=== PATIENT | male | born 1945 | race Caucasian/White ===

== ENCOUNTER 2025-03-24 14:44 | Inpatient (IN) ==
[2025-03-24] MEDS ORDERED: VANCOMYCIN CONSULT ACTIVE PRN (16:11)
[2025-03-24] MEDS: PLASMA-LYTE A 1,000 ML IV ONE (16:27)
[2025-03-24] MEDS: ACETAMINOPHEN 1,000 MG/100 ML VIAL IV STA (16:30)
[2025-03-24] MEDS: ONDANSETRON INJ 2 MG/ML 2 ML VIAL IV STA (16:30)
--- NOTE | 2025-03-24 16:34 | Emergency Department Note ---
Impression & Plan Sepsis, Anaplasmosis, Pancytopenia, Rash, Hypomagnesemia, Acute hypokalemia, Acute hyponatremia, Acute dehydration ED Provider Note NAME: SILVIA MORALES AGE: 79 SEX: M : 1945 ARRIVES VIA: Ambulance INFORMANT: Patient, EMS, ED PROVIDER(S): Wong Dias DO CHIEF COMPLAINT: fever HPI: This is an 79-year-old female with the PMHx of hyperlipidemia, hypertension, esophageal reflux and osteoarthritis/osteoporosis presenting to [facility] for further evaluation of rash and fever. Patient is accompanied by his who provide additional history. History is provided by the patient's as well as the patient. He reports for 3 days he has had a rash. He was at urgent care, previously. They prescribed him antivirals as they thought this could be possibly shingles. Patient states the rash improved but now is diffuse throughout his whole body. Patient reports increased confusion, weakness and fatigue. He does have a fever. Patient states he is has intermittent episodes of nausea with emesis. No cough or congestion. Denies chest pain or palpitations. No shortness of breath. They deny abdominal pain. No urinary complaints. No recent changes in bowel movements. Patient denies recent changes in medications or OTC supplements. Patient offers no other complaints, today. ADDITIONAL HISTORY OBTAINED: Per HPI Chronic Medical/Social Conditions Affecting Care: Per HPI PAST MEDICAL HISTORY: See Below PAST SURGICAL HISTORY: See Below FAMILY HISTORY: See Below SOCIAL HISTORY: See Below HOME MEDICATIONS: See Below ALLERGIES: See Below VITALS: See Below PHYSICAL EXAMINATION: GENERAL: Sitting up in bed, alert, ill appearing, well nourished, no distress, non-toxic EYE EXAM: normal conjunctiva. OROPHARYNX: no exudate, no erythema, lips, buccal mucosa, and tongue normal and mucous membranes are dry NECK: supple, no nuchal rigidity, no adenopathy, non-tender LUNGS: Clear to auscultation. Normal chest wall mechanics HEART: no murmurs, tachycardic rate, regular rhythm ABDOMEN: abdomen soft, non-tender, no masses, no rebound or guarding. BACK: Back is symmetrical on inspection and there is no deformity, no midline tenderness, no CVA tenderness. SKIN: diffuse macular rash on 4/4 extremities and thorax without palm or sole involvement. No bullae. No mucosal membrane involvement. UPPER EXTREMITIES: upper extremities are grossly normal. LOWER EXTREMITIES: No pitting edema. NEURO EXAM: Normal sensorium, GCS 15, normal speech, mildly inattentive, no confusion, no gross weakness of arms, no gross weakness of legs. MEDICAL DECISION MAKING: Differential diagnoses includes but not limited to febrile illness, sepsis, bacteremia, tickborne illness, viral URI, complicated UTI In summary, this is a 79 year old male who presented with fevers. Differential as above. Nursing notes and pertinent past medical records reviewed. Vital signs reviewed and the patient is Febrile, tachycardic and tachypneic. Patient is otherwise hemodynamically stable. Patient meets SIRS criteria based on above. History and presentation revealed fevers and rash amongst other symptoms in the setting of a tick bite approximately 2 weeks ago. Highly suspicious of possible tickborne illness. Given nausea and generalized abdominal pain, I am concerned for possible intra-abdominal pathology as a source of the patient's sepsis. Physical examination revealed as above. As a result of my initial evaluation, IV access was established and the patient was placed on CCRM. Therapeutics ordered include IVFR and broad spectrum antibiotics. Diagnostics interpreted by me include cardiac monitoring as listed below: -Cardiac Monitoring: An order was placed for continuous cardiac monitoring. The monitor shows a rate of 90-120s with regular rhythm. Patient completed laboratory studies and imaging. CXR independently interpreted by me reveals no evidence of focal consolidation to suggest pna. No large pneumothorax or pleural effusion. No obvious displaced rib fracture. Results independently interpreted by me are pancytopenia. Anemia is stable. Multiple electrolyte derangements noted including hyponatremia, hypokalemia and hypomagnesemia. P.o. replenishment of potassium ordered with potassium chloride. IV replenishment of magnesium ordered. Patient does have mild elevation in his bilirubin as well as AST. Patient noted to have an elevated procalcitonin. He has mild hyperglycemia which is likely contributing to hyponatremia but not the exact etiology. Patient appears hypovolemic. Will continue IV fluid resuscitation. Further workup for hyponatremia ordered with serum osm as well as urine osm and urine sodium. The patient was managed with IV fluid resuscitation and electrolyte replacement. Patient was also given broad-spectrum antibiotics. Given concerns for anaplasmosis, patient was started on doxycycline as well. CT abdomen/pelvis did not reveal an exact etiology of the patient's sepsis. Could have mild gastroenteritis based on bowel inflammation on CT. Ultimately, the decision was made to admit the patient for sepsis secondary to anaplasmosis with acute dehydration and electrolyte derangements. I discussed the case with the hospitalist service via telephone/Tiger[employer] and they are agreeable to admit the patient to their services. Based on the above, including the patient's age, coexisting illnesses, labs, imaging, and exam findings the decision to treat as an inpatient. I discussed the patient with the hospitalist team who recommended admission to their services. They received the medications, treatments, interventions indicated above and their condition remained guarded. I discussed my findings with the patient and their family and they understand and agree with the treatment plan. All patient / family questions were answered to their satisfaction. Consults/Care Managements Discussions: Per MDM ER treatment provided: See above Procedures:none Critical Care: None The chart was completed utilizing Via Speech voice recognition software. Grammatical errors, random word insertions, pronoun errors, and incomplete sentences are an occasional consequence of this system due to software limitations, ambient noise, and hardware issues. Any formal questions or concerns about the content, text, or information contained within the body of this dictation should be directly addressed to the physician for clarification. 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 Beliefs That Will Affect Care: None marital status: Current Living Situation: Spouse current occupational status: retired Feels Safe at Home: Yes Safety Concerns: Feels Safe At This Time Assistive Devices: Glasses and Hearing Aid - Bilateral Allergies Allergies Allergy/AdvReac Type Severity Reaction Status Date / Time No Known Allergies Allergy Verified 03/15/20 12:45 Home Meds Home Medications Medication Instructions Recorded Confirmed alendronate 70 mg tablet 70 mg PO SA 03/15/20 03/24/25 amlodipine 5 mg tablet 5 mg PO HS 03/15/20 03/24/25 atorvastatin 10 mg tablet 10 mg PO HS 03/15/20 03/24/25 hydrochlorothiazide 25 mg tablet 25 mg PO QAM 03/15/20 03/24/25 metoprolol tartrate 25 mg tablet 25 mg PO BID 03/15/20 03/24/25 omeprazole 20 mg capsule,delayed 20 mg PO BID 02/19/25 03/24/25 release Previous Rx's Medication Instructions Recorded cyclobenzaprine 5 mg tablet 5 mg PO BID #10 tabs 02/20/25 oxycodone 5 mg tablet 5 mg PO Q6H PRN pain #7 tabs 02/20/25 Results & Data (ED) Vital Signs Vital Signs - 24 hr 03/24/25 14:58 03/24/25 15:24 03/24/25 15:30 Temperature 39.6 C H Temperature Source Oral Pulse Rate 104 H 98 H Pulse Rate [Apical] 94 H Pulse Rate from SpO2 Sensor Respiratory Rate 17 26 H 22 Respiratory Effort / Characteristics Non-Labored Spontaneous Non-Labored Spontaneous Respiratory Depth Normal Normal Respiratory Pattern Regular Blood Pressure 153/90 H 135/75 Blood Pressure [Right Arm] 139/79 Blood Pressure Mean 111 95 Blood Pressure Mean [Right Arm] 99 Blood Pressure Position Semi-fowlers Pulse Oximetry 92 92 92 Oxygen Delivery Method Room Air Room Air Sepsis Recent Fever Within 48 Hours Yes Sepsis New/Unexplained Change in Mental Status N/A Sepsis Action Taken by Nursing Physician Notified 03/24/25 16:00 03/24/25 16:03 03/24/25 16:21 Temperature Temperature Source Pulse Rate 94 H 96 H 96 H Pulse Rate [Apical] Pulse Rate from SpO2 Sensor Respiratory Rate 24 25 H Respiratory Effort / Characteristics Respiratory Depth Respiratory Pattern Blood Pressure 144/80 H Blood Pressure [Right Arm] Blood Pressure Mean 101 Blood Pressure Mean [Right Arm] Blood Pressure Position Pulse Oximetry 93 92 Oxygen Delivery Method Sepsis Recent Fever Within 48 Hours Sepsis New/Unexplained Change in Mental Status Sepsis Action Taken by Nursing 03/24/25 16:23 03/24/25 16:23 03/24/25 16:30 Temperature Temperature Source Pulse Rate 96 H 94 H Pulse Rate [Apical] 96 H Pulse Rate from SpO2 Sensor Respiratory Rate 20 20 23 Respiratory Effort / Characteristics Non-Labored Spontaneous Respiratory Depth Normal Respiratory Pattern Regular Blood Pressure Blood Pressure [Right Arm] 144/80 H Blood Pressure Mean Blood Pressure Mean [Right Arm] 101 Blood Pressure Position Pulse Oximetry 95 95 95 Oxygen Delivery Method Room Air Room Air Sepsis Recent Fever Within 48 Hours Sepsis New/Unexplained Change in Mental Status Sepsis Action Taken by Nursing 03/24/25 16:42 03/24/25 16:45 03/24/25 17:15 Temperature Temperature Source Pulse Rate 98 H 97 H 97 H Pulse Rate [Apical] Pulse Rate from SpO2 Sensor 98 H Respiratory Rate 26 H 26 H 16 Respiratory Effort / Characteristics Respiratory Depth Respiratory Pattern Blood Pressure 143/80 H 127/62 Blood Pressure [Right Arm] Blood Pressure Mean 101 83 Blood Pressure Mean [Right Arm] Blood Pressure Position Pulse Oximetry 94 93 91 Oxygen Delivery Method Sepsis Recent Fever Within 48 Hours Sepsis New/Unexplained Change in Mental Status Sepsis Action Taken by Nursing 03/24/25 17:31 03/24/25 17:42 03/24/25 17:45 Temperature 37.9 C H Temperature Source Oral Pulse Rate 89 91 H Pulse Rate [Apical] Pulse Rate from SpO2 Sensor Respiratory Rate 22 28 H Respiratory Effort / Characteristics Respiratory Depth Respiratory Pattern Blood Pressure 116/63 126/66 Blood Pressure [Right Arm] Blood Pressure Mean 80 98 Blood Pressure Mean [Right Arm] Blood Pressure Position Pulse Oximetry 91 91 Oxygen Delivery Method Sepsis Recent Fever Within 48 Hours Sepsis New/Unexplained Change in Mental Status Sepsis Action Taken by Nursing 03/24/25 18:12 03/24/25 18:15 03/24/25 18:21 Temperature Temperature Source Pulse Rate 93 H 92 H 94 H Pulse Rate [Apical] Pulse Rate from SpO2 Sensor Respiratory Rate 25 H 25 H 21 Respiratory Effort / Characteristics Respiratory Depth Respiratory Pattern Blood Pressure 110/64 110/65 110/65 Blood Pressure [Right Arm] Blood Pressure Mean 79 80 80 Blood Pressure Mean [Right Arm] Blood Pressure Position Pulse Oximetry 91 91 Oxygen Delivery Method Sepsis Recent Fever Within 48 Hours Sepsis New/Unexplained Change in Mental Status Sepsis Action Taken by Nursing 03/24/25 18:30 Temperature Temperature Source Pulse Rate 88 Pulse Rate [Apical] Pulse Rate from SpO2 Sensor Respiratory Rate 20 Respiratory Effort / Characteristics Respiratory Depth Respiratory Pattern Blood Pressure 112/64 Blood Pressure [Right Arm] Blood Pressure Mean 80 Blood Pressure Mean [Right Arm] Blood Pressure Position Pulse Oximetry 90 Oxygen Delivery Method Sepsis Recent Fever Within 48 Hours Sepsis New/Unexplained Change in Mental Status Sepsis Action Taken by Nursing Laboratory Data 03/24/25 14:54 03/24/25 14:54 Lab Results 03/24/25 03/24/25 03/24/25 Range/Units 14:54 16:25 18:20 WBC 4.25 L (4.8-10.8) K/ul RBC 4.14 L (4.70-6.10) M/uL Hgb 13.0 L (14.0-18.0) g/dl Hct 36.0 L (42.0-52.0) % MCV 87.0 (80.0-100.0) fL MCH 31.4 (25.0-34.0) pg MCHC 36.1 H (32.0-36.0) g/dL RDW Std Deviation 37.3 (36.4-46.3) fL RDW Coeff of Ayesha 11.7 (11.5-14.5) % Plt Count 67 L (130-400) K/uL MPV 11.9 (9.4-12.4) fL Immature Gran % (Auto) 0.7 % Neut % (Auto) 87.3 % Lymph % (Auto) 8.5 % [place] % (Auto) 3.3 % Eos % (Auto) 0.0 % Baso % (Auto) 0.2 % Neut # (Auto) 3.71 (1.40-6.50) K/uL Lymph # (Auto) 0.36 L (1.20-3.40) K/uL [place] # (Auto) 0.14 (0.11-0.59) K/uL Eos # (Auto) 0.00 (0.00-0.50) K/uL Baso # (Auto) 0.01 (0.00-0.20) K/uL Immature Gran # (Auto) 0.03 (0.01-0.20) K/uL PT 11.3 (9.0-12.0) Seconds INR 1.1 (0.9-1.1) APTT 32 H (21-31) Seconds PTT Ratio 1.2 VBG pH 7.44 H (7.36-7.41) VBG pCO2 40 (38-50) mmHg VBG pO2 34 mmHg VBG HCO3 27 mmol/L VBG O2 Saturation < 60.0 % VBG Base Excess 2.8 mEq/L Sodium 127 L (136-145) mmol/L Potassium 3.4 L (3.5-5.1) mmol/L Chloride 91 L (98-107) mmol/L Carbon Dioxide 25 (21-32) mmol/L Anion Gap 11 (3-11) BUN 17 (6-23) mg/dl Creatinine 1.03 (0.6-1.4) mg/dl Est Cr Clr Drug Dosing Not Reportable eGFR 72.98 BUN/Creatinine Ratio 16.5 (10-20) Glucose 144 H (70-99(Fasting)) mg/dl Lactate 1.6 (0.4-2.0) mmol/L Calcium 7.8 L (8.6-10.3) mg/dl Magnesium 1.4 L (1.7-2.4) mg/dl Total Bilirubin 1.1 H (0.2-1.0) mg/dl Direct Bilirubin 0.1 (0-0.2) mg/dl AST 83 H (13-39) U/L ALT 43 (7-52) U/L Alkaline Phosphatase 70 (34-104) U/L Troponin I High Sens 17.0 (0-20) pg/ml Total Protein 6.3 (6.0-8.3) gm/dl Albumin 3.3 L (3.4-5.0) gm/dl Procalcitonin 0.91 H (0-0.5) ng/ml Urine Color Yellow Urine Appearance Clear (Clear) Urine pH 8.0 H (4.5-7.5) Ur Specific Hubert 1.019 (1.000-1.030) Urine Protein 3+ H (Negative) Urine Glucose (UA) Negative (Negative) Urine Ketones 1+ H (Negative) Urine Blood 2+ H (Negative) Urine Nitrite Negative (Negative) Urine Bilirubin Negative (Negative) Urine Urobilinogen Positive H (Negative) Ur Leukocyte Esterase Negative (Negative) Urine WBC (Auto) 0-5 (0-5) /hpf Urine RBC (Auto) 6-10 H (0-2) /hpf U Hyaline Cast (Auto) 3-5 H (0-2) /lpf U Epithel Cells (Auto) 0-2 (0-2) /hpf Urine Bacteria (Auto) None Seen (None Seen) Urine Osmolality 569 (500-800) mOsm/kg Ur Random Sodium 73 mmol/L Urine Comment Nasal Screen MRSA (PCR) Negative (Negative) Adenovirus (PCR) Not Detected (NotDetected) Anaplasma Smear See Comment A Babesia Smear See Comment B. pertussis DNA (PCR) Not Detected (NotDetected) B.parapertussis DNA PCR Not Detected (NotDetected) Lyme Disease Screen Positive H (Negative) Lyme Tier 2 IgG Confirm Positive H (Negative) Lyme Tier 2 IgM Confirm Negative (Negative) C. pneumoniae DNA (PCR) Not Detected (NotDetected) Coronavirus OC43 (PCR) Not Detected (NotDetected) Coronavirus HKU1 (PCR) Not Detected (NotDetected) Coronavirus 229E (PCR) Not Detected (NotDetected) SARS-CoV-2 (PCR) Not Detected (NotDetected) Coronavirus NL63 (PCR) Not Detected (NotDetected) Human Metapneumovir PCR Not Detected (NotDetected) Influenza Type A (PCR) Not Detected (NotDetected) Influenza Type B (PCR) Not Detected (NotDetected) M. pneumoniae (PCR) Not Detected (NotDetected) Parainfluenza 1 (PCR) Not Detected (NotDetected) Parainfluenza 2 (PCR) Not Detected (NotDetected) Parainfluenza 3 (PCR) Not Detected (NotDetected) Parainfluenza 4 (PCR) Not Detected (NotDetected) RSV (PCR) Not Detected (NotDetected) Entero/Rhino (PCR) Not Detected (NotDetected) Administered Medications Atorvastatin Calcium (Atorvastatin 10 Mg Tab) 10 mg PO KAITLYNN Stop: 04/23/25 21:38 Last Admin: 03/24/25 22:04 Dose: 10 mg Documented By: PHANI Metoprolol Tartrate (Metoprolol Tartrate 25 Mg Tab) 25 mg PO BID KAITLYNN Stop: 04/23/25 21:38 Last Admin: 03/24/25 22:04 Dose: 25 mg Documented By: PHANI Discontinued Medications Cetirizine HCl (Cetirizine Hcl 10 Mg Tablet) 10 mg PO NOW ONE Stop: 03/24/25 17:19 Last Admin: 03/24/25 17:37 Dose: 10 mg Documented By: james Vancomycin HCl 1,500 mg/ (Sodium Chloride) 500 mls @ 200 mls/hr IV NOW STA Stop: 03/24/25 18:40 Last Infusion: 03/24/25 21:00 Dose: Infused Documented By: james Admin: 03/24/25 17:37 Dose: 200 mls/hr Documented By: james Cefepime HCl (Maxipime 2000mg) 2,000 mg in 20 mls @ 5 mls/min IV NOW STA; Protocol Stop: 03/24/25 16:14 Last Admin: 03/24/25 17:37 Dose: 5 mls/min Documented By: james Parenteral Electrolytes (Plasma-Lyte A Ph 7.4) 1,000 mls @ 999 mls/hr IV .Q1H1M ONE Stop: 03/24/25 17:11 Last Infusion: 03/24/25 19:16 Dose: Infused Documented By: james Admin: 03/24/25 16:27 Dose: 999 mls/hr Documented By: JIM Acetaminophen (Ofirmev) 1,000 mg in 100 mls @ 400 mls/hr IV NOW STA Stop: 03/24/25 16:29 Last Infusion: 03/24/25 16:50 Dose: Infused Documented By: james Admin: 03/24/25 16:30 Dose: 400 mls/hr Documented By: JIM Magnesium Sulfate/Dextrose (Magnesium Sulfate / D5w) 1 gm in 100 mls @ 100 mls/hr IV Q1H KAITLYNN Stop: 03/24/25 17:50 Last Infusion: 03/24/25 20:16 Dose: Infused Documented By: james Admin: 03/24/25 19:16 Dose: 100 mls/hr Documented By: james Doxycycline Hyclate 100 mg/ (Dextrose) 100 mls @ 50 mls/hr IV NOW STA Stop: 03/24/25 19:33 Last Admin: 03/24/25 22:03 Dose: 50 mls/hr Documented By: PHANI Sodium Chloride (Nss) 1,000 mls @ 999 mls/hr IV .Q1H1M ONE Stop: 03/24/25 19:52 Last Infusion: 03/24/25 20:19 Dose: Infused Documented By: james Admin: 03/24/25 19:19 Dose: 999 mls/hr Documented By: james Magnesium Sulfate/Dextrose (Magnesium Sulfate / D5w) 1 gm in 100 mls @ 50 mls/hr IV NOW STA Stop: 03/25/25 00:52 Last Admin: 03/24/25 23:00 Dose: 50 mls/hr Documented By: PHANI Ioversol (Optiray 320 100ml) 90 ml IV ONCE ONE Stop: 03/24/25 17:05 Last Admin: 03/24/25 17:05 Dose: 90 ml Documented By: LALIT Ondansetron HCl (Ondansetron Inj 2 Mg/Ml 2 Ml Vial) 4 mg IV NOW STA Stop: 03/24/25 16:15 Last Admin: 03/24/25 16:30 Dose: 4 mg Documented By: JIM Potassium Chloride (Potassium Chloride Crtab 20 Meq Tabcr) 40 meq PO NOW STA Stop: 03/24/25 16:53 Last Admin: 03/24/25 17:37 Dose: 40 meq Documented By: james Potassium Chloride (Potassium Chloride Crtab 20 Meq Tabcr) 40 meq PO NOW STA Stop: 03/24/25 22:53 Last Admin: 03/24/25 23:01 Dose: 40 meq Documented By: PHANI Imaging Data Radiologist's Impression: Chest X-Ray 03/24/25 16:11 Chest radiograph, one view History: Sepsis Comparison: None Findings: Single AP view of the chest performed. No focal consolidation or pleural effusion. No pneumothorax. The cardiomediastinal silhouette is within normal limits. There is new prominence and indistinct appearance of the hilar pulmonary vascularity. No evidence for lymphadenopathy. No visualized bony or soft tissue abnormality. Impression: Findings of pulmonary venous hypertension and possible early pulmonary edema. No focal pneumonia. Electronically signed by Jerson Mckeon 03-24-2025 6:56 PM Abdomen/Pelvis CT 03/24/25 16:43 CT ABDOMEN and PELVIS with INTRAVENOUS CONTRAST HISTORY: Abdominal pain TECHNIQUE: CT abdomen and pelvis with contrast. IV CONTRAST: 100 mL of OMNIPAQUE 300 ENTERIC CONTRAST: Not Given COMPARISON: None FINDINGS: LOWER CHEST: Mild cardiac enlargement. LIVER: No focal lesion identified. Hepatic steatosis. GALLBLADDER/BILIARY: Unremarkable gallbladder. No abnormal biliary dilatation. SPLEEN: Unremarkable. PANCREAS: Unremarkable. ADRENALS: Unremarkable. KIDNEYS: Cortical and parapelvic cysts. There is an intermediate density exophytic lesion arising from the lower pole of the right kidney anteriorly measuring 6 mm (series 2, and 37). No stones or hydronephrosis identified. PERITONEUM/RETROPERITONEUM. No lymphadenopathy by size criteria. No aortic aneurysm. GASTROINTESTINAL: No obstruction. Mild inflammatory changes of the stomach and the loops of small bowel demonstrate wall thickening. Anal wall thickening. Colonic diverticulosis without evidence of diverticulitis. REPRODUCTIVE: Prostamegaly. Enlarged prostate appears to impinge upon the urinary bladder outlet URINARY BLADDER inflammatory changes wall thickening. ABDOMINAL WALL: Small fat-containing umbilical hernia. BONES: No acute findings. IMPRESSION: Findings suggesting mild gastroenteritis. Inflammatory changes of the urinary bladder may be due to cystitis. Prostamegaly with urinary bladder outlet obstruction also present. Intermittent density exophytic lesion arising from the lower pole of the right kidney may represent a proteinaceous versus a hemorrhagic cyst however consider further evaluation with renal ultrasound when clinically able to exclude complexity Electronically signed by Craig Bermeo 03-24-2025 7:07 PM Discharge Plan Visit Data Chief Complaint: Illness Stated Complaint: ILLNESS, RASH ED Provider: Wong Dias Discharge Problem: Sepsis, Anaplasmosis, Pancytopenia, Rash, Hypomagnesemia, Acute hypokalemia, Acute hyponatremia, Acute dehydration Patient Disposition: Admitted As Inpatient Condition: Serious Discharge Instructions Interventions: ED Discharge Assessment Last Done: 03/24/25 20:11
[2025-03-24 16:47] LABS: Alanine Aminotransferase 43 U/L (7-52); Albumin Level 3.3 gm/dl (3.4-5.0); Alkaline Phosphatase 70 U/L (34-104); Anion Gap 11 (3-11); Bilirubin,Total 1.1 mg/dl (0.2-1.0); Blood Urea Nitrogen 17 mg/dl (6-23); Calcium 7.8 mg/dl (8.6-10.3); Carbon Dioxide 25 mmol/L (21-32); Chloride 91 mmol/L (98-107); Glucose 144 mg/dl (70-99(Fasting)); Magnesium 1.4 mg/dl (1.7-2.4); Potassium 3.4 mmol/L (3.5-5.1); Sodium 127 mmol/L (136-145); Total Protein 6.3 gm/dl (6.0-8.3)
[2025-03-24 16:48] LABS: Base Excess VBG 2.8 mEq/L; HCO3 VBG 27 mmol/L; Oxygen Saturation VBG < 60.0 %; PCO2 VBG 40 mmHg (38-50); PO2 VBG 34 mmHg; pH VBG 7.44 (7.36-7.41)
[2025-03-24 16:59] LABS: Appearance Urine Clear (Clear); Bacteria Urine Automated None Seen (None Seen); Epithelial Cell Urine Auto 0-2 /hpf (0-2); Glucose Urine UA Negative (Negative); WBC Urine Automated 0-5 /hpf (0-5)
[2025-03-24 17:04] LABS: INR 1.1 (0.9-1.1); Partial Thromboplastin Time 32 Seconds (21-31); Prothrombin Time 11.3 Seconds (9.0-12.0)
[2025-03-24] MEDS: OPTIRAY 320 100ml IV ONE (17:05)
[2025-03-24] MEDS: POTASSIUM CHLORIDE CRTAB 20 MEQ TABCR PO STA ×2 (17:37→23:01)
[2025-03-24] MEDS: CEFEPIME 2000MG 2,000 MG/20 ML SYR IV STA (17:37)
[2025-03-24] MEDS: VANCOMYCIN HCL 1,500 MG in SODIUM CHLORIDE 0.9% 500 ML IV STA (17:37)
[2025-03-24] MEDS: CETIRIZINE HCL 10 MG TABLET PO ONE (17:37)
[2025-03-24 17:46] LABS: Chlamydia pneumoniae PCR Not Detected (NotDetected); Coronavirus 229E PCR Not Detected (NotDetected); Coronavirus CoV-2 (COVID19)PCR Not Detected (NotDetected); Coronavirus HKU1 PCR Not Detected (NotDetected); Coronavirus NL63 PCR Not Detected (NotDetected); Coronavirus OC43PCR Not Detected (NotDetected); Human Metapneumovirus PCR Not Detected (NotDetected); Parainfluenza Virus 1 PCR Not Detected (NotDetected); Parainfluenza Virus 2 PCR Not Detected (NotDetected); Parainfluenza Virus 3 PCR Not Detected (NotDetected); Parainfluenza Virus 4 PCR Not Detected (NotDetected); Respiratory Syncytial VirusPCR Not Detected (NotDetected); Rhinovirus/Enterovirus PCR Not Detected (NotDetected)
[2025-03-24 17:50] LABS: Hematocrit (blood only) 36.0 % (42.0-52.0); Hemoglobin 13.0 g/dl (14.0-18.0); Mean Corpuscular Hemoglobin 31.4 pg (25.0-34.0); Mean Corpuscular Volume 87.0 fL (80.0-100.0); Platelet Count 67 K/uL (130-400); RDW Standard Deviation 37.3 fL (36.4-46.3); Red Blood Count 4.14 M/uL (4.70-6.10); White Blood Count 4.25 K/ul (4.8-10.8)
[2025-03-24 17:51] LABS: Immature Granulocytes # (auto) 0.03 K/uL (0.01-0.20); Immature Granulocytes % (auto) 0.7 %
--- NOTE | 2025-03-24 18:17 | History & Physical Report ---
Date of Service March 24, 2025 Assessment & Plan (1) Anaplasmosis: (2) Hypertension: (3) Hyperlipidemia: Plan This is an 79 y/o male with HTN, dyslipidemia, GERD, and compression fractures who presents to the ED today with fever and a rash. Work-up in the ED revealed mild pancytopenia, multiple electrolyte abnormalities including sodium low at 127, potassium low at 3.4, magnesium low at 1.4. Procalcitonin was elevated at 0.91. Anaplasma smear positive with intracytoplasmic neutrophilic inclusions noted. Confirmatory testing pending. Pt referred for admission for further management. 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 #Multiple electrolyte abnormalities - hyponatremia, hypokalemia, hypomagnesemia - Admit to PCU - Will give additional 1L IVF bolus - 30 ml/kg calculated around 2200 ml - Continue electrolyte repletion - will give additional 40 mEq of KCl - Labs in the AM - Doxycyline 100 mg IV BID, continue cefepime for now pending cultures - PRN acetaminophen for fevers - CT Abd/Pel pending #Hypertension - BP currently in the 110s systolic so will hold amlodipine - Hold HCTZ in view of hyponatremia - Continue beta yolette - Re-evaluate in the AM #Dyslipidemia - Chronic, stable - continue statin #GERD - Chronic, stable - continue PPI #Recent compression fracture - PRN pain control - PT/OT evaluations Pt seen and evaluated with attending physician, Dr. Benedict. Plan of care discussed and as outlined above. Code status: DNR/DNI DVT prophylaxis: SCDs due to thrombocytopenia Nisha Begum PA-C History of Present Illness Chief Complaint: fever, rash Primary Care Provider: Marlene Camargo MD This is an 79 y/o male with HTN, dyslipidemia, GERD, and compression fractures who presents to the ED today with fever and a rash. Pt was seen at urgent care on 03/22 for fever, nausea, fatigue x 3 days then developed a rash that day. Noted at that visit that he found a tick about two weeks ago on his right abdomen, which he removed. Unsure how long it was attached. Rash at that time when he was seen in urgent care was isolated to left chest and axilla so provider was concerned about shingles and started valacyclovir. Lyme and anaplasmosis serologies were drawn at that visit but pending. Since that visit, he has continued to feel worse with progression of the rash and worsening fatigue and weakness. Ongoing fevers. Pt's has noticed that he seems a little confused over the last two days, slower to respond when she asked him questions. Appetite has been poor for the last several days with limited oral intake. Urinating without issues. Denies headache, neck pain, cough, congestion, vomiting, diarrhea. Still has some back pain related to compression fractures but overall improving. Allergies Allergy/AdvReac Type Severity Reaction Status Date / Time No Known Allergies Allergy Verified 03/15/20 12:45 Home Medications Medication Instructions Recorded Confirmed Type alendronate 70 mg tablet 70 mg PO SA 03/15/20 03/24/25 History amlodipine 5 mg tablet 5 mg PO HS 03/15/20 03/24/25 History atorvastatin 10 mg tablet 10 mg PO HS 03/15/20 03/24/25 History hydrochlorothiazide 25 mg tablet 25 mg PO QAM 03/15/20 03/24/25 History metoprolol tartrate 25 mg tablet 25 mg PO BID 03/15/20 03/24/25 History omeprazole 20 mg capsule,delayed 20 mg PO BID 02/19/25 03/24/25 History release cyclobenzaprine 5 mg tablet 5 mg PO BID #10 tabs 02/20/25 03/24/25 Rx oxycodone 5 mg tablet 5 mg PO Q6H PRN pain #7 tabs 02/20/25 03/24/25 Rx Past Med/Surg History Problem List (Updated 03/25/25 @ 03:49 by Wong Dias DO) Acute dehydration (Acute) Acute hyponatremia (Acute) Acute hypokalemia (Acute) Hypomagnesemia (Acute) Rash (Acute) Pancytopenia (Acute) Sepsis (Acute) Anaplasmosis (Acute) Medical History Compression fracture of body of thoracic vertebra Hyperlipidemia Hypertension Surgical History History of appendectomy Social History Smoking Status: Never smoker Hx Alcohol Use: No Hx Substance Use: No Preferred Language: Sami Communication Ability: Effective 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 Results & Data Results & Data Vital Signs (Past 12 Hours) Vital Signs Temp Pulse Pulse Resp BP BP Pulse Ox 03/24/25 17:45 91 H 28 H 126/66 91 03/24/25 17:42 37.9 C H 03/24/25 17:31 89 22 116/63 91 03/24/25 17:15 97 H 16 127/62 91 03/24/25 16:45 97 H 26 H 143/80 H 93 03/24/25 16:42 98 H 26 H 94 03/24/25 16:30 94 H 23 95 03/24/25 16:23 96 H 20 144/80 H 95 03/24/25 16:23 96 H 20 95 03/24/25 16:21 96 H 25 H 92 03/24/25 16:03 96 H 03/24/25 16:00 94 H 24 144/80 H 93 03/24/25 15:30 98 H 22 135/75 92 03/24/25 15:24 94 H 26 H 139/79 92 03/24/25 14:58 39.6 C H 104 H 17 153/90 H 92 O2 Del Method 03/24/25 17:45 03/24/25 17:42 03/24/25 17:31 03/24/25 17:15 03/24/25 16:45 03/24/25 16:42 03/24/25 16:30 03/24/25 16:23 Room Air 03/24/25 16:23 Room Air 03/24/25 16:21 03/24/25 16:03 03/24/25 16:00 03/24/25 15:30 03/24/25 15:24 Room Air 03/24/25 14:58 Room Air Laboratory Results Lab Results 03/24/25 03/24/25 03/24/25 Range/Units 14:54 16:25 Unknown WBC 4.25 L (4.8-10.8) K/ul RBC 4.14 L (4.70-6.10) M/uL Hgb 13.0 L (14.0-18.0) g/dl Hct 36.0 L (42.0-52.0) % MCV 87.0 (80.0-100.0) fL MCH 31.4 (25.0-34.0) pg MCHC 36.1 H (32.0-36.0) g/dL RDW Std Deviation 37.3 (36.4-46.3) fL RDW Coeff of Ayesha 11.7 (11.5-14.5) % Plt Count 67 L (130-400) K/uL MPV 11.9 (9.4-12.4) fL Immature Gran % (Auto) 0.7 % Neut % (Auto) 87.3 % Lymph % (Auto) 8.5 % Thayer % (Auto) 3.3 % Eos % (Auto) 0.0 % Baso % (Auto) 0.2 % Neut # (Auto) 3.71 (1.40-6.50) K/uL Lymph # (Auto) 0.36 L (1.20-3.40) K/uL Thayer # (Auto) 0.14 (0.11-0.59) K/uL Eos # (Auto) 0.00 (0.00-0.50) K/uL Baso # (Auto) 0.01 (0.00-0.20) K/uL Immature Gran # (Auto) 0.03 (0.01-0.20) K/uL PT 11.3 (9.0-12.0) Seconds INR 1.1 (0.9-1.1) APTT 32 H (21-31) Seconds PTT Ratio 1.2 VBG pH 7.44 H (7.36-7.41) VBG pCO2 40 (38-50) mmHg VBG pO2 34 mmHg VBG HCO3 27 mmol/L VBG O2 Saturation < 60.0 % VBG Base Excess 2.8 mEq/L Sodium 127 L (136-145) mmol/L Potassium 3.4 L (3.5-5.1) mmol/L Chloride 91 L (98-107) mmol/L Carbon Dioxide 25 (21-32) mmol/L Anion Gap 11 (3-11) BUN 17 (6-23) mg/dl Creatinine 1.03 (0.6-1.4) mg/dl Est Cr Clr Drug Dosing Not Reportable eGFR 72.98 BUN/Creatinine Ratio 16.5 (10-20) Glucose 144 H (70-99(Fasting)) mg/dl Osmolality 265 L (280-300) mOsm/kg Lactate 1.6 (0.4-2.0) mmol/L Calcium 7.8 L (8.6-10.3) mg/dl Magnesium 1.4 L (1.7-2.4) mg/dl Total Bilirubin 1.1 H (0.2-1.0) mg/dl Direct Bilirubin 0.1 (0-0.2) mg/dl AST 83 H (13-39) U/L ALT 43 (7-52) U/L Alkaline Phosphatase 70 (34-104) U/L Troponin I High Sens 17.0 (0-20) pg/ml Total Protein 6.3 (6.0-8.3) gm/dl Albumin 3.3 L (3.4-5.0) gm/dl Procalcitonin 0.91 H (0-0.5) ng/ml Urine Color Yellow Urine Appearance Clear (Clear) Urine pH 8.0 H (4.5-7.5) Ur Specific Gleason 1.019 (1.000-1.030) Urine Protein 3+ H (Negative) Urine Glucose (UA) Negative (Negative) Urine Ketones 1+ H (Negative) Urine Blood 2+ H (Negative) Urine Nitrite Negative (Negative) Urine Bilirubin Negative (Negative) Urine Urobilinogen Positive H (Negative) Ur Leukocyte Esterase Negative (Negative) Urine WBC (Auto) 0-5 (0-5) /hpf Urine RBC (Auto) 6-10 H (0-2) /hpf U Hyaline Cast (Auto) 3-5 H (0-2) /lpf U Epithel Cells (Auto) 0-2 (0-2) /hpf Urine Bacteria (Auto) None Seen (None Seen) Urine Osmolality 569 (500-800) mOsm/kg Ur Random Sodium 73 mmol/L Urine Comment Adenovirus (PCR) Not Detected (NotDetected) Anaplasma Smear See Comment A Babesia Smear See Comment B. pertussis DNA (PCR) Not Detected (NotDetected) B.parapertussis DNA PCR Not Detected (NotDetected) C. pneumoniae DNA (PCR) Not Detected (NotDetected) Coronavirus OC43 (PCR) Not Detected (NotDetected) Coronavirus HKU1 (PCR) Not Detected (NotDetected) Coronavirus 229E (PCR) Not Detected (NotDetected) SARS-CoV-2 (PCR) Not Detected (NotDetected) Coronavirus NL63 (PCR) Not Detected (NotDetected) Human Metapneumovir PCR Not Detected (NotDetected) Influenza Type A (PCR) Not Detected (NotDetected) Influenza Type B (PCR) Not Detected (NotDetected) M. pneumoniae (PCR) Not Detected (NotDetected) Parainfluenza 1 (PCR) Not Detected (NotDetected) Parainfluenza 2 (PCR) Not Detected (NotDetected) Parainfluenza 3 (PCR) Not Detected (NotDetected) Parainfluenza 4 (PCR) Not Detected (NotDetected) RSV (PCR) Not Detected (NotDetected) Entero/Rhino (PCR) Not Detected (NotDetected) Medications Administered Vancomycin HCl 1,500 mg/ (Sodium Chloride) 500 mls @ 200 mls/hr IV NOW STA Stop: 03/24/25 18:40 Last Admin: 03/24/25 17:37 Dose: 200 mls/hr Documented By: james Discontinued Medications Cetirizine HCl (Cetirizine Hcl 10 Mg Tablet) 10 mg PO NOW ONE Stop: 03/24/25 17:19 Last Admin: 03/24/25 17:37 Dose: 10 mg Documented By: james Cefepime HCl (Maxipime 2000mg) 2,000 mg in 20 mls @ 5 mls/min IV NOW STA; Protocol Stop: 03/24/25 16:14 Last Admin: 03/24/25 17:37 Dose: 5 mls/min Documented By: james Parenteral Electrolytes (Plasma-Lyte A Ph 7.4) 1,000 mls @ 999 mls/hr IV .Q1H1M ONE Stop: 03/24/25 17:11 Last Admin: 03/24/25 16:27 Dose: 999 mls/hr Documented By: JIM Acetaminophen (Ofirmev) 1,000 mg in 100 mls @ 400 mls/hr IV NOW STA Stop: 03/24/25 16:29 Last Infusion: 03/24/25 16:50 Dose: Infused Documented By: james Admin: 03/24/25 16:30 Dose: 400 mls/hr Documented By: JIM Ioversol (Optiray 320 100ml) 90 ml IV ONCE ONE Stop: 03/24/25 17:05 Last Admin: 03/24/25 17:05 Dose: 90 ml Documented By: LALIT Ondansetron HCl (Ondansetron Inj 2 Mg/Ml 2 Ml Vial) 4 mg IV NOW STA Stop: 03/24/25 16:15 Last Admin: 03/24/25 16:30 Dose: 4 mg Documented By: JIM Potassium Chloride (Potassium Chloride Crtab 20 Meq Tabcr) 40 meq PO NOW STA Stop: 03/24/25 16:53 Last Admin: 03/24/25 17:37 Dose: 40 meq Documented By: james Supervising Physician Co-Signing Physician Notes I have seen and discussed the case with the collaborating advanced practitioner. I agree with the above H&P. I have reviewed and confirmed the patients medical history, the findings on physical examination, and the patients diagnosis and treatment plan with Shy LONGO and agree with the information documented. Evaluated patient at bedside. Reports tick bite maybe two weeks ago. Reports progressive fatigue over last few days, with onset of rash on Tuesday. Patient was treated for valacyclovir for presumptive shingles, and tested on Tuesday for tick borne. patient reports worsening fatigue with inability to stand from ground prompting presentation. Patient also notes rash progressed. Denies chest pain, neck pain, headache, sob, or other concerns outside of fevers, weakness, rash. GENERAL APPEARANCE: AxOx4, mildly ill appearing gentleman no acute distress. HEENT: NC, AT. MMM. EOMI, clear conjunctiva, oropharynx clear. NECK: Supple without lymphadenopathy. No stiffness or restricted ROM. HEART: Normal rate and regular rhythm, normal S1/S1, no m/r/g LUNGS: CTAB, moving air well. No crackles or wheezes are heard. ABDOMEN: Soft, nontender, nondistended with good bowel sounds heard. BACK: No CVAT, no obvious deformity. EXTREMITIES: Without cyanosis, clubbing or edema. NEUROLOGICAL: Grossly nonfocal. Alert and oriented, moving all 4 extremities. CN not formally tested but appear grossly intact. Skin: Warm, diffuse maculopapular rash of torso, back, legs, and upper extremitites, nontender, nonblanching, no vesicles/pustules noted ## Sepsis 2/2 tick borne illness reported tick bite confirmed 2 weeks earlier, lyme/anaplasmosis preliminary follow final serologies follow blood cultures continue cefepime and doxy monitor on tele admit PCU ensure sepsis protocol with fluid resuscitation hold antihypertensives for now follow up on ct abd/p #Pancytopenia likely secondary to above trend cbc #mild transaminits like secondary to above trend lfts rest of plan as above I spent a total of 25 minutes coordinating, documenting, and providing care for this patient excluding time spent in the performance of separately billed services. All of the aforementioned completed outside of collaborating with the assigned advanced practitioner for a full treatment plan. I have reviewed the advanced practitioner's documentation, and I agree with, and take responsibility for the plan of care
[2025-03-24 18:28] LABS: Lyme Screen Rflx Confirmation Positive (Negative)
[2025-03-24] MEDS ORDERED: POTASSIUM CHLORIDE CRTAB 20 MEQ TABCR PO STA (18:53)
--- NOTE | 2025-03-24 18:57 | XRay Report ---
Chest radiograph, one view History: Sepsis Comparison: None Findings: Single AP view of the chest performed. No focal consolidation or pleural effusion. No pneumothorax. The cardiomediastinal silhouette is within normal limits. There is new prominence and indistinct appearance of the hilar pulmonary vascularity. No evidence for lymphadenopathy. No visualized bony or soft tissue abnormality. Impression: Findings of pulmonary venous hypertension and possible early pulmonary edema. No focal pneumonia. Electronically signed by Jerson Mckeon 03-24-2025 6:56 PM
--- NOTE | 2025-03-24 19:08 | CT Scan Report ---
CT ABDOMEN and PELVIS with INTRAVENOUS CONTRAST HISTORY: Abdominal pain TECHNIQUE: CT abdomen and pelvis with contrast. IV CONTRAST: 100 mL of OMNIPAQUE 300 ENTERIC CONTRAST: Not Given COMPARISON: None FINDINGS: LOWER CHEST: Mild cardiac enlargement. LIVER: No focal lesion identified. Hepatic steatosis. GALLBLADDER/BILIARY: Unremarkable gallbladder. No abnormal biliary dilatation. SPLEEN: Unremarkable. PANCREAS: Unremarkable. ADRENALS: Unremarkable. KIDNEYS: Cortical and parapelvic cysts. There is an intermediate density exophytic lesion arising from the lower pole of the right kidney anteriorly measuring 6 mm (series 2, and 37). No stones or hydronephrosis identified. PERITONEUM/RETROPERITONEUM. No lymphadenopathy by size criteria. No aortic aneurysm. GASTROINTESTINAL: No obstruction. Mild inflammatory changes of the stomach and the loops of small bowel demonstrate wall thickening. Anal wall thickening. Colonic diverticulosis without evidence of diverticulitis. REPRODUCTIVE: Prostamegaly. Enlarged prostate appears to impinge upon the urinary bladder outlet URINARY BLADDER inflammatory changes wall thickening. ABDOMINAL WALL: Small fat-containing umbilical hernia. BONES: No acute findings. IMPRESSION: Findings suggesting mild gastroenteritis. Inflammatory changes of the urinary bladder may be due to cystitis. Prostamegaly with urinary bladder outlet obstruction also present. Intermittent density exophytic lesion arising from the lower pole of the right kidney may represent a proteinaceous versus a hemorrhagic cyst however consider further evaluation with renal ultrasound when clinically able to exclude complexity Electronically signed by Craig Bermeo 03-24-2025 7:07 PM
[2025-03-24] MEDS: MAGNESIUM SULFATE / D5W 1 GM/100 ML BAG IV SCH (19:16)
[2025-03-24] MEDS: SODIUM CHLORIDE 0.9% 1,000 ML IV ONE (19:19)
[2025-03-24 20:11] LABS: Lyme Ab IgG 2nd Tier Confirm Positive (Negative)
[2025-03-24 20:12] LABS: Lyme Ab IgM 2nd Tier Confirm Negative (Negative)
[2025-03-24] MEDS ORDERED: ONDANSETRON INJ 2 MG/ML 2 ML VIAL IV PRN (21:39)
[2025-03-24] MEDS: DOXYCYCLINE HYCLATE 100 MG in DEXTROSE 5% MINI-B 100 ML IV STA (22:03)
[2025-03-24] MEDS: METOPROLOL TARTRATE 25 MG TAB PO SCH (22:04)
[2025-03-24] MEDS: ATORVASTATIN 10 MG TAB PO SCH (22:04)
[2025-03-24] MEDS: MAGNESIUM SULFATE / D5W 1 GM/100 ML BAG IV STA (23:00)
[2025-03-25] MEDS: CEFEPIME 2000MG 2,000 MG/20 ML SYR IV SCH (02:30)
[2025-03-25] MEDS: ACETAMINOPHEN 500 MG TAB PO PRN (03:37)
[2025-03-25] MEDS: Patient's HEIGHT &/or WEIGHT Needed STA (03:38)
[2025-03-25] MEDS: DOXYCYCLINE HYCLATE 100 MG in DEXTROSE 5% MINI-B 100 ML IV SCH (05:48)
[2025-03-25 07:07] LABS: Alanine Aminotransferase 55.0 U/L (7-52); Albumin Globulin Ratio 1.1 (0.9-2); Albumin Level 2.9 gm/dl (3.4-5.0); Alkaline Phosphatase 63.0 U/L (34-104); Anion Gap 6.0 (3-11); Bilirubin,Total 0.9 mg/dl (0.2-1.0); Blood Urea Nitrogen 13.0 mg/dl (6-23); Calcium 7.3 mg/dl (8.6-10.3); Carbon Dioxide 23.0 mmol/L (21-32); Chloride 101.0 mmol/L (98-107); Creatinine Clr Calc Pharmacy 66.7 ml/min; Globulin 2.6 gm/dl (2.5-4.0); Glucose 107.0 mg/dl (70-99(Fasting)); Magnesium 2.1 mg/dl (1.7-2.4); Potassium 3.8 mmol/L (3.5-5.1); Sodium 130.0 mmol/L (136-145); Total Protein 5.5 gm/dl (6.0-8.3)
[2025-03-25 07:16] LABS: Hematocrit (blood only) 30.7 % (42.0-52.0); Hemoglobin 11.2 g/dl (14.0-18.0); Mean Corpuscular Hemoglobin 31.9 pg (25.0-34.0); Mean Corpuscular Volume 87.5 fL (80.0-100.0); Platelet Count 55 K/uL (130-400); RDW Standard Deviation 38.5 fL (36.4-46.3); Red Blood Count 3.51 M/uL (4.70-6.10); White Blood Count 5.24 K/ul (4.8-10.8)
[2025-03-25 07:24] LABS: Immature Granulocytes # (auto) 0.04 K/uL (0.01-0.20); Immature Granulocytes % (auto) 0.8 %
[2025-03-25 08:02] VITALS: RESP 18
[2025-03-25] MEDS: POT PHOSPHATE MONOBASIC W/ SOD TAB PO SCH (09:43)
--- NOTE | 2025-03-25 12:34 | Hospitalist Progress Note ---
Date of Service March 25, 2025 Assessment & Plan (1) Anaplasmosis: (2) Hypertension: (3) Hyperlipidemia: Plan Mr. Travis is an 79 y/o male with HTN, dyslipidemia, GERD, and compression fractures admitted for sepsis secondary to anaplasmosis. Patient reports subjective improvement. CT Abd pelvis reviewed noting gastroenteritis, inflammatory bladder changers, and an exophytic lesion on lower pole of right kidney, as well as prostatomegaly. Renal U/S ordered to eval the renal lesion. Otherwise no splenomegaly # Sepsis 2/2 tick borne illness, suspect Anaplasmosis reported tick bite confirmed 2 weeks earlier; lyme +, IgG; anaplasmosis smear + biofire negative follow final serologies follow blood cultures, NGTD continue cefepime and doxy monitor on tele patient appears adequately fluid resusicated #Pancytopenia likely secondary to above, anticipate rebound in 24-48 hours trend cbc #mild transaminitis like secondary to above, no GI concerns at this time trend lfts #Hypertension BP currently in the 110s systolic so will hold amlodipine Hold HCTZ in view of hyponatremia Continue beta yolette #Dyslipidemia - Chronic, stable - continue statin #GERD - Chronic, stable - continue PPI #Recent compression fracture - PRN pain control - PT/OT evaluations Code status: DNR/DNI DVT prophylaxis: SCDs due to thrombocytopenia Admission and Anticipated Discharge Date Admission Date: March 24, 2025 Subjective Reports some subjective improvement, including increase in appetite denies chest pain, sob, nausea, vomiting endorses weakness residual from days prior, but no worse than before Physical Exam Constitutional: WD/WN, vitals as above Respiratory: normal respiratory effort, lungs clear to auscultation Cardiovascular: RRR, no murmur, no edema Gastrointestinal (Abdomen): normal bowel sounds, soft, nontender, no hepatosplenomegaly Skin: diffuse maculopapular rash much less erythematous than day prior with fading borders Results & Data Results & Data Vital Signs (Past 12 Hours) Vital Signs Temp Pulse Resp BP Pulse Ox Pulse Ox Pulse Ox 03/25/25 11:53 95 98 03/25/25 08:00 36.7 C 69 18 108/65 93 03/25/25 03:32 38.1 C H 85 17 117/65 92 O2 Del Method O2 Flow Rate O2 Flow Rate O2 Flow Rate 03/25/25 11:53 0 0 03/25/25 08:00 Nasal Cannula 1.0 03/25/25 03:32 Nasal Cannula 1
--- NOTE | 2025-03-25 14:57 | Ultrasound Report ---
RENAL ULTRASOUND CLINICAL HISTORY: RENAL CYST NOTED ON IMAGING COMPARISON STUDY: CT of the abdomen and pelvis March 24, 2025. TECHNIQUE: Sonography of the kidneys and the urinary bladder was performed. FINDINGS: The right kidney measures 12.6 centers in maximal dimension and the left measures 11.9 cm. There is no hydronephrosis. Renal echogenicity, size and cortical thickness are normal. An anechoic 5 .6 cm right lower pole renal lesion corresponds to the water attenuation lesion by CT. The 8 mm hyper dense/enhancing right lower pole lesion on CT is not evident by sonography given its small size. No r enal calculi are identified. The prostate is mildly enlarged. No bladder abnormality is identified by sonography. IMPRESSION: 1. Nonvisualization of the 8 mm right lower pole hyperdense/enhancing lesion on CT of March 24. This could represent a proteinaceous cyst or small solid renal lesion. This could be assessed with an outpatient renal protocol MRI. 2. 5.6 cm right renal cyst. ACT 112: Negative or not required by law. Electronically signed by: Senthil Fraser M.D. 03/25/2025 2:56 PM
[2025-03-26 07:56] LABS: Hematocrit (blood only) 31.8 % (42.0-52.0); Hemoglobin 11.6 g/dl (14.0-18.0); Mean Corpuscular Hemoglobin 31.6 pg (25.0-34.0); Mean Corpuscular Volume 86.6 fL (80.0-100.0); Platelet Count 68 K/uL (130-400); RDW Standard Deviation 40.0 fL (36.4-46.3); Red Blood Count 3.67 M/uL (4.70-6.10); White Blood Count 4.67 K/ul (4.8-10.8)
[2025-03-26 08:15] LABS: Alanine Aminotransferase 52.0 U/L (7-52); Albumin Level 2.9 gm/dl (3.4-5.0); Alkaline Phosphatase 66.0 U/L (34-104); Anion Gap 7.0 (3-11); Bilirubin,Total 0.8 mg/dl (0.2-1.0); Blood Urea Nitrogen 15.0 mg/dl (6-23); Calcium 7.5 mg/dl (8.6-10.3); Carbon Dioxide 24.0 mmol/L (21-32); Chloride 102.0 mmol/L (98-107); Creatinine Clr Calc Pharmacy 80.1 ml/min; Glucose 94.0 mg/dl (70-99(Fasting)); Magnesium 2.0 mg/dl (1.7-2.4); Potassium 3.2 mmol/L (3.5-5.1); Sodium 133.0 mmol/L (136-145); Total Protein 5.5 gm/dl (6.0-8.3)
[2025-03-26 08:38] LABS: ALC (manual) 1.91 K/uL (1.2-3.4); ANC (manual) 2.57 K/uL (1.4-6.5); Reactive Lymphocytes # (manual) 1.12 K/uL; Reactive Lymphocytes % (manual) 24 %
[2025-03-26] MEDS: POTASSIUM CHLORIDE / WTR 10 MEQ/100 ML PLCT IV SCH (09:11)
[2025-03-26] MEDS: POTASSIUM CHLORIDE CRTAB 20 MEQ TABCR PO STA (09:14)
[2025-03-26 12:12] VITALS: PULSE 71; TEMP 97.5; O2SAT 97
[2025-03-26 15:39] VITALS: BP 136/75
--- NOTE | 2025-03-26 15:50 | Discharge Summary ---
Discharge Summary Date of Service March 26, 2025 Principal Dx & Hospital Course #1 = Principal Diagnosis (1) Anaplasmosis: (2) Hypertension: (3) Hyperlipidemia: Plan Mr. Travis is an 79 y/o male with HTN, dyslipidemia, GERD, and compression fractures admitted for sepsis secondary to anaplasmosis. Patient reports subjective improvement. CT Abd pelvis reviewed noting gastroenteritis, inflammatory bladder changers, and an exophytic lesion on lower pole of right kidney, as well as prostatomegaly. Renal U/S ordered to eval the renal lesion. Otherwise no splenomegaly. Renal US revealed 8mm hyperdense lesion, which could represent proteinaceous or small solid lesions. Outpatient MRI renal protocol recommended. Patient with continued improvement in labs--platelets uptrending from low of 55 to 67 this am. Liver enzymes improving from AST high of 109 to 88, ALT from 55 to 52. Patient with notable improvement in fatigue and weakness, walking in hallways. Discussed dispo plan with patient and at bedside. Discussed need for follow up labs, 13 more days of doxycycline, and need for renal MRI in future. Patient verbalized understanding and denies any acute concerns. 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 reported tick bite confirmed 2 weeks earlier; lyme +, IgG; anaplasmosis smear + biofire negative follow final serologies blood cultures with no growth to date discontinue cefepime, continue doxycycline Rash with notable improvement #Pancytopenia likely secondary to above, anticipate rebound in 24-48 hours uptrending, plan for OP labs in 1 week #mild transaminitis like secondary to above, no GI concerns at this time improving, follow op #Hypertension Hold HCTZ in view of hyponatremia Continue BB and amlodipine #Dyslipidemia - Chronic, stable - continue statin #GERD - Chronic, stable - continue PPI #Recent compression fracture - PRN pain control PT/OT: home Notes For Next Care Provider Repeat labs (CMP, CBC) in 1 week Renal mass noted: MRI renal protocol as outpatient recommended, see report below Medication Changes From Visit doxycycline 100mg bid x 13 more days potassium 20meq x 3 more days hold HCTZ in setting of electrolyte abnormalities, consider resumption after labs or alternative agent Admission HPI Per Admitting Provider This is an 79 y/o male with HTN, dyslipidemia, GERD, and compression fractures who presents to the ED today with fever and a rash. Pt was seen at urgent care o n 03/22 for fever, nausea, fatigue x 3 days then developed a rash that day. Noted at that visit that he found a tick about two weeks ago on his right abdomen, which he removed. Unsure how long it was attached. Rash at that time when he was seen in urgent care was isolated to left chest and axilla so provider was concerned about shingles and started valacyclovir. Lyme and anaplasmosis serologies were drawn at that visit but pending. Since that visit, he has continued to feel worse with progression of the rash and worsening fatigue and weakness. Ongoing fevers. Pt's has noticed that he seems a little confused over the last two days, slower to respond when she asked him questions. Appetite has been poor for the last several days with limited oral intake. Urinating without issues. Denies headache, neck pain, cough, congestion, vomiting, diarrhea. Still has some back pain related to compression fractures but overall improving. Admission Exam Per Admitting Provider GENERAL APPEARANCE: AxOx4, mildly ill appearing gentleman no acute distress. HEENT: NC, AT. MMM. EOMI, clear conjunctiva, oropharynx clear. NECK: Supple without lymphadenopathy. No stiffness or restricted ROM. HEART: Normal rate and regular rhythm, normal S1/S1, no m/r/g LUNGS: CTAB, moving air well. No crackles or wheezes are heard. ABDOMEN: Soft, nontender, nondistended with good bowel sounds heard. BACK: No CVAT, no obvious deformity. EXTREMITIES: Without cyanosis, clubbing or edema. NEUROLOGICAL: Grossly nonfocal. Alert and oriented, moving all 4 extremities. CN not formally tested but appear grossly intact. Skin: Warm, diffuse maculopapular rash of torso, back, legs, and upper extremitites, nontender, nonblanching, no vesicles/pustules noted Discharge Exam Constitutional WD/WN, vitals as above Respiratory normal respiratory effort, lungs clear to auscultation Cardiovascular RRR, no murmur, no edema Gastrointestinal (Abdomen) normal bowel sounds, soft, nontender, no hepatosplenomegaly Skin initially reported as maculopapular, but would redact and state morbilioform like rash, which was improved notably, still visible, but less erythematous, borders fading and more confluent Updated Medication List Medication Instructions Recorded Confirmed Type alendronate 70 mg tablet 70 mg PO SA 03/15/20 03/24/25 History amlodipine 5 mg tablet 5 mg PO HS 03/15/20 03/24/25 History atorvastatin 10 mg tablet 10 mg PO HS 03/15/20 03/24/25 History hydrochlorothiazide 25 mg tablet 25 mg PO QAM 03/15/20 03/24/25 History metoprolol tartrate 25 mg tablet 25 mg PO BID 03/15/20 03/24/25 History omeprazole 20 mg capsule,delayed 20 mg PO BID 02/19/25 03/24/25 History release cyclobenzaprine 5 mg tablet 5 mg PO BID #10 tabs 02/20/25 03/24/25 Rx oxycodone 5 mg tablet 5 mg PO Q6H PRN pain #7 tabs 02/20/25 03/24/25 Rx doxycycline hyclate 100 mg capsule 100 mg PO BID 13 days #26 caps 03/26/25 Rx potassium chloride 20 mEq 20 meq PO DAILY #3 tabs 03/26/25 Rx tablet,extended release Hospital Stay Data Consultations 03/24/25 18:06 ED Decision to Admit Stat Diagnostic Imagining Performed 03/24/25 16:43 CT abd pelvis IV con only [place], [place] [phone] CT Scan Report Patient: SILVIA TRAVIS Admit Date: 03/24/25 MR#: [id number] Address1: [address] [place] [address] Acct ID:[id number] Address2: Date: [address] [facility] Zip: [place] [address] Age: 79 Location: ED Sex: M Room/Bed: Att Phy: Diagnosis: ILLNESS, RASH Mariajose Phy: Marlene Camargo MD Service Date: 03/24/25 [facility] Phy: Interpreting Phy: Craig Bermeo MDAdmit Phy: Ordering Phy: Wong Dias DO cc: ~ CT ABDOMEN and PELVIS with INTRAVENOUS CONTRAST HISTORY: Abdominal pain TECHNIQUE: CT abdomen and pelvis with contrast. IV CONTRAST: 100 mL of OMNIPAQUE 300 ENTERIC CONTRAST: Not Given COMPARISON: None FINDINGS: LOWER CHEST: Mild cardiac enlargement. LIVER: No focal lesion identified. Hepatic steatosis. GALLBLADDER/BILIARY: Unremarkable gallbladder. No abnormal biliary dilatation. SPLEEN: Unremarkable. PANCREAS: Unremarkable. ADRENALS: Unremarkable. KIDNEYS: Cortical and parapelvic cysts. There is an intermediate density exophytic lesion arising from the lower pole of the right kidney anteriorly measuring 6 mm (series 2, and 37). No stones or hydronephrosis identified. PERITONEUM/RETROPERITONEUM. No lymphadenopathy by size criteria. No aortic aneurysm. GASTROINTESTINAL: No obstruction. Mild inflammatory changes of the stomach and the loops of small bowel demonstrate wall thickening. Anal wall thickening. Colonic diverticulosis without evidence of diverticulitis. REPRODUCTIVE: Prostamegaly. Enlarged prostate appears to impinge upon the urinary bladder outlet URINARY BLADDER inflammatory changes wall thickening. ABDOMINAL WALL: Small fat-containing umbilical hernia. BONES: No acute findings. IMPRESSION: Findings suggesting mild gastroenteritis. Inflammatory changes of the urinary bladder may be due to cystitis. Prostamegaly with urinary bladder outlet obstruction also present. Intermittent density exophytic lesion arising from the lower pole of the right kidney may represent a proteinaceous versus a hemorrhagic cyst however consider further evaluation with renal ultrasound when clinically able to exclude complexity 03/25/25 07:34 US renal/blad retro comp Routine RENAL ULTRASOUND CLINICAL HISTORY: RENAL CYST NOTED ON IMAGING COMPARISON STUDY: CT of the abdomen and pelvis March 24, 2025. TECHNIQUE: Sonography of the kidneys and the urinary bladder was performed. FINDINGS: The right kidney measures 12.6 centers in maximal dimension and the left measures 11.9 cm. There is no hydronephrosis. Renal echogenicity, size and cortical thickness are normal. An anechoic 5.6 cm right lower pole renal lesion corresponds to the water attenuation lesion by CT. The 8 mm hyperdense/enhancing right lower pole lesion on CT is not evident by sonography given its small size. No renal calculi are identified. The prostate is mildly enlarged. No bladder abnormality is identified by sonography. IMPRESSION: 1. Nonvisualization of the 8 mm right lower pole hyperdense/enhancing lesion on CT of March 24, 2025. This could represent a proteinaceous cyst or small solid renal lesion. This could be assessed with an outpatient renal protocol MRI. 2. 5.6 cm right renal cyst. ACT 112: Negative or not required by law. Pending Results Patient Have Any Pending Studies at Discharge: No Discharge Instructions Given to Patient (Per Discharging Provider) You were admitted for sepsis and found to have anaplasmosis, a tick borne disease. Anaplasmosis is not contagious from [id number]. Antibiotic medicine is the main treatment. Doxycycline is an antibiotic that is given most often to work against the bacteria. You had severe illness, your recovery may take longer. You received antibiotics through an IV (intravenous) line and will continue the remainder of your a ntibiotic orallly. You will have 13 more days of doxycycline, your next dose is this evening. You will take potassium chloride for 3 days, 1 tablet in the morning starting tomorrow. Please follow up with your PCP for repeat labs in 1-2 weeks. Please hold your Hydrochlorothiazide until your follow up with your PCP due to your electrolytes being abnormal. To help prevent anaplasmosis: Stay out of wooded and bushy areas with high grass and leaf litter. Walk in the center of trails instead. Wear light-colored long pants and long-sleeved shirts, and enclosed shoes. Tuck your pants into your socks while out hiking. Use EPA-registered repellent when you're outdoors: These include DEET, picaridin, KP7171, Oil of Lemon Eucalyptus (OLE), [id number] (PMD), or 2-undercanone. If you spray your clothing, there's no need to spray repellent on the skin under your clothing. Don't use OLE or PMD on children younger than 3 years old. Do a full-body check for ticks after coming in from the outdoors. Bathe or shower within 2 hours after coming indoors, so you can wash off and more easily find and remove any ticks. Examine gear and pets for ticks. Tumble clothes in a dryer on high heat for at least 10 minutes to kill any remaining ticks. If you do find a tick attached to your skin, remove it as soon as possible. Follow these steps: Use a pair of clean tweezers to grasp the tick directly by the head or mouth parts. Don't grab the tick by its body. Remove the tick by pulling it out firmly and directly outward without twisting or turning. Kill the tick by placing it in alcohol, a sealed bag, or flushing it down the toilet. Clean the bite wound with soap and water or rubbing alcohol. Take a photo of the tick. This can help identify the type of tick if you have symptoms. Doctors dont advise preventive treatment with antibiotics, so you dont need to call if you find a tick on your body. Most ticks dont carry the bacteria that cause the disease. But if you have possible symptoms of anaplasmosis within 2 weeks after a tick bite, call your doctor or get medical care right away. You were also noted to have a cyst on your kidney. Here is the excerpt from the report: 1. Nonvisualization of the 8 mm right lower pole hyperdense/enhancing lesion on CT of March 24, 2025. This could represent a proteinaceous cyst or small solid renal lesion. This could be assessed with an outpatient renal protocol MRI. 2. 5.6 cm right renal cyst. Please disucss MRI with your PCP Total Time Total Time Spent Total Time Spent (In Minutes): 45
--- NOTE | 2025-03-28 13:07 | Electrocardiogram Report ---
Test Reason : Blood Pressure : */* mmHG Vent. Rate : 98 BPM Atrial Rate : 98 BPM P-R Int : 198 ms QRS Dur : 94 ms QT Int : 348 ms P-R-T Axes : 50 -18 27 degrees QTcB Int : 444 ms Sinus rhythm Incomplete right bundle branch block Borderline ECG When compared with ECG of 15-Mar-2020 11:58, Vent. rate has increased by 41 bpm Nonspecific T wave abnormality has replaced inverted T waves in Inferior leads Nonspecific T wave abnormality now evident in Anterior leads Confirmed by Fabrizio Navarrete ([id number]) on 03/28/2025 1:07:13 PM Referred By: REFERRED SELF Confirmed By: Fabrizio Navarrete
== END 2025-03-26 16:42 | disposition home or self-care (01) | DRG 872 ==
LOC: ED 14:44 → 2S 18:41